=== PATIENT | female | born 1985 | race Caucasian/White ===

== ENCOUNTER 2017-07-15 18:45 | Emergency (ER) | payer SELFPAY ==
[~2017-07-15] VITALS: Ht 160 cm; Wt 56.7 kg
[2017-07-15 19:20] LABS: BILIRUBIN,URINE NEGATIVE (NEG); GLUCOSE,URINE NEGATIVE (NEG); NITRITE,URINE NEGATIVE (NEG); PH,URINE 6.5; PROTEIN,URINE NEGATIVE (NEG-TRACE); UROBILINOGEN,URINE 0.2 mg/dL (0.2 mg/dL)
[2017-07-15 19:26] LABS: BACTERIA,URINE FEW /HPF (0-FEW); RBC,URINE OCC /HPF (0-2); SQUAMOUS EPITHELIAL CELL,UR MOD /LPF; WBC,URINE RARE /HPF (0-4)
[2017-07-15] MEDS ORDERED: IV NORMAL SALINE 1000ML BAG 1,000 ML IV ONE (19:30)
[2017-07-15] MEDS ORDERED: HYDROmorphone 2 MG/ML VIAL IV ONE (19:30)
[2017-07-15] MEDS ORDERED: ONDANSETRON PF 4 MG/2 ML VIAL. IV ONE (19:30)
[2017-07-15] MEDS ORDERED: BUSP10TA PO (20:04)
[2017-07-15] MEDS ORDERED: SERT100T PO (20:04)
[2017-07-15] MEDS ORDERED: GABA800T2 PO (20:05)
[2017-07-15] MEDS ORDERED: fentaNYL PF VIAL 100 MCG/2 ML VIAL IV PRN (20:15)
[2017-07-15 20:25] VITALS: BP 111/58
[2017-07-15] MEDS ORDERED: HYDR-2758 PO (20:31)
--- NOTE | 2017-07-15 20:31 | PHYS DOC ---
Past Medical History Past Medical History: Anxiety, Depression, Kidney Stone Past Surgical History: Hysterectomy Alcohol Use: None Drug Use: None Adult General Chief Complaint Chief Complaint: FLANK PAIN HPI HPI 31-year-old female presenting with right flank pain recently diagnosed with kidney stones at [facility]. She was able to show me the lab results and CT results which show a 2 mm kidney stone on the right UVJ. Otherwise unremarkable. Her pain is sharp shooting moderate intermittent and without alleviating factors. She denies any fevers or chills. She has nausea without vomiting. Review of systems is negative for fevers chills headache chest pain or shortness of breath. All other review of systems is negative unless otherwise noted in history of present illness. ED course: 31-year-old female presenting to the emergency department today with flank pain diagnosed with a kidney stone following up with urology. Patient was given IV fluids along with nausea and pain medication for treatment of her kidney stone. negative. Urinalysis not suggestive of infection. On reexamination she is feeling better. The patient was then discharged home in stable condition to follow up with urology at [facility]. They were to return if their symptoms worsened or if they were concerned for any reason. Face-to- face discharge instructions and return precautions were given. Patient's questions were answered to their satisfaction. Patient is comfortable plan. Review of Systems Review of Systems SEE ABOVE. Current Medications Current Medications Current Medications Medications (Trade) Dose Ordered Sig/[facility] Start Time Stop Time Status Last Admin Dose Admin Fentanyl Citrate (Fentanyl 2ml Vial) 50 mcg PRN Q30MIN PRN 07/15/17 20:15 07/15/17 20:23 50 MCG Hydromorphone HCl (Dilaudid) 0.5 mg 1X ONCE 07/15/17 19:30 07/15/17 19:31 DC 07/15/17 19:40 0.5 MG Ondansetron HCl (Zofran) 4 mg 1X ONCE 07/15/17 19:30 07/15/17 19:31 DC 07/15/17 19:40 4 MG Sodium Chloride 1,000 ml @ 1,000 mls/hr 1X ONCE 07/15/17 19:30 07/15/17 20:29 DC 07/15/17 19:42 1,000 MLS/HR Allergies Allergies Allergies Coded Allergies Type Severity Reaction Last Updated Verified clonidine Allergy Unknown "HIVES" 07/15/17 Yes Physical Exam Physical Exam SEE ABOVE Constitutional: Well developed, well nourished, no acute distress, non-toxic appearance. HENT: Normocephalic, atraumatic, bilateral external ears normal, oropharynx moist, no oral exudates, nose normal. [] Eyes: PERRLA, EOMI, conjunctiva normal, no discharge. Neck: Normal range of motion, no tenderness, supple, no stridor. [] Cardiovascular:Heart rate regular rhythm, no murmur Lungs & Thorax: Bilateral breath sounds clear to auscultation [] Abdomen: Bowel sounds normal, soft, no tenderness, no masses, no pulsatile masses. [] Skin: Warm, dry, no erythema, no rash. [] Back: nontender midline, mild right cva tenderness Extremities: No tenderness, no cyanosis, no clubbing, ROM intact, no edema. [] Neurologic: Alert and oriented X 3, normal motor function, normal sensory function, no focal deficits noted. Psychologic: Affect normal, judgement normal, mood normal. [] Current Patient Data Vital Signs Vital Signs Date Time Temp Pulse Resp B/P (MAP) Pulse Ox O2 Delivery O2 Flow Rate FiO2 07/15/17 19:35 64 119/76 (90) 97 Room Air 07/15/17 19:03 98.0 20 98.0 Lab Values Laboratory Tests Test 07/15/17 19:10 Urine Collection Type Unknown Urine Color Straw Urine Clarity Clear Urine pH 6.5 Urine Specific [place] 1.015 Urine Protein Negative mg/dL (NEG-TRACE) Urine Glucose (UA) Negative mg/dL (NEG) Urine Ketones (Stick) Negative mg/dL (NEG) Urine Blood Negative (NEG) Urine Nitrite Negative (NEG) Urine Bilirubin Negative (NEG) Urine Urobilinogen Dipstick 0.2 mg/dL (0.2 mg/dL) Urine Leukocyte Esterase Negative (NEG) Urine RBC Occ /HPF (0-2) Urine WBC Rare /HPF (0-4) Urine Squamous Epithelial Cells Mod /LPF Urine Bacteria Few /HPF (0-FEW) EKG EKG [] Radiology/Procedures Radiology/Procedures [] Course & Med Decision Making Course & Med Decision Making Pertinent Labs and Imaging studies reviewed. (See chart for details) [] Dragon Disclaimer Dragon Disclaimer This electronic medical record was generated, in whole or in part, using a voice recognition dictation system. Departure Departure Impression: Primary Impression: Nephrolithiasis Disposition: 01 HOME, SELF-CARE Condition: STABLE Referrals: BRETT DELCID MD (PCP) Patient Instructions: Diet for Kidney Stones, Kidney Stones Additional Instructions: Thank you for allowing us to participate in your care today. Followup with your primary care physician in 3 days if your symptoms do not improve. Call your Primary Doctor tomorrow and inform them of your visit today. If you do not have a primary care provider you can ask for a list of our primary care providers. Return to the emergency department you have any new or concerning findings. This should be evaluated by the primary care physician and any necessary consulting services for continued management within a few days after discharge. Return to emergency room if you have any new or concerning symptoms including but not limited to fever, chills, nausea, vomiting, intractable pain, any new rashes, chest pain, shortness of air, uncontrolled bleeding, difficulty breathing, and/or vision loss. You may have been prescribed medication that can change in your level of thinking and ability to operate machinery. These medications include hydrocodone and Ativan. Also, Benadryl has been known to do this as well. Be sure to check with your pharmacist and ask if the medications you've prescribed can affect your level of consciousness. I recommend not operating heavy machinery or driving while on medication such as these. Scripts Hydrocodone Bit/Acetaminophen (HYDROCODONE-APAP 5-325 ) 1 Each Tablet 1 TAB PO PRN Q8HRS Y for SEVERE PAIN, #8 TAB 0 Refills Prov: ISABELA DC MD 07/15/17 ISABELA DC MD Jul 15, 2017 20:31
[2017-07-15] MEDS ORDERED: ONDA4TAB10 SL (21:01)
== END 2017-07-15 21:00 | disposition home or self-care (01) ==
LOC: ER 18:45
DX: N20.0 Calculus of kidney (principal); F41.9 Anxiety disorder, unspecified; F32.9 Major depressive disorder, single episode, unspecified; Z87.442 Personal history of urinary calculi; Z90.710 Acquired absence of both cervix and uterus; Z88.8 Allergy status to other drugs, medicaments and biological substances
CPT/HCPCS: 81001; 96361; 96374; 96375; 99284; J1170; J2405; J3010; J7030

== ENCOUNTER → 2018-03-23 | Outpatient (CLI) | payer OTHER ==
[~2018-03-23] MED LIST: BUSP10TA PO; GABA800T2 PO; HYDR-2758 PO; ONDA4TAB10 SL; SERT100T PO
[2018-03-24 09:51] LABS: BASO # 0.1 x10^3/uL (0.0-0.2); BASO % 1 % (0-3); EOS # 0.1 x10^3/uL (0.0-0.7); EOS % 2 % (0-3); HEMATOCRIT 41.3 % (36.0-47.0); LYMPH % 26 % (24-48); MEAN CORPUSCULAR HEMOGLOBIN 33 pg (25-35); MEAN CORPUSCULAR HGB CONC 34 g/dL (31-37); MEAN CORPUSCULAR VOLUME 96 fL (79-100); MONO # 0.6 x10^3/uL (0.0-1.1); MONO % 8 % (0-9); NEUT # 4.9 x10^3uL (1.8-7.7); NEUT % 64 % (31-73); PLATELET COUNT 221 x10^3/uL (140-400); RED CELL DISTRIBUTION WIDTH 13.4 % (11.5-14.5); WHITE BLOOD COUNT 7.7 x10^3/uL (4.0-11.0)
== END | disposition home or self-care (01) ==
LOC: LAB 19:56
PROVIDERS: ATTEND Psychiatry & Neurology Psychiatry
DX: F33.2 Major depressive disorder, recurrent severe without psychotic features (principal); Z79.899 Other long term (current) drug therapy; Z87.442 Personal history of urinary calculi; Z90.710 Acquired absence of both cervix and uterus; Z88.8 Allergy status to other drugs, medicaments and biological substances
CPT/HCPCS: 36415; 85025

== ENCOUNTER 2019-11-02 05:07 | Inpatient (IN) | payer BC, OTHER ==
[~2019-11-02] VITALS: Ht 160 cm; Wt 54.5 kg
[~2019-11-02 05:07] MED LIST changes: -GABA800T2 PO; +GABA800T5 PO; -HYDR-2758 PO; +HYDR-2761 PO
[2019-11-02] MEDS ORDERED: IV NORMAL SALINE 1000ML BAG 1,000 ML IV SCH (05:42)
[2019-11-02] MEDS ORDERED: MORPHINE SULFATE 4 MG/ML VIAL. ONE (05:43)
[2019-11-02] MEDS ORDERED: ONDANSETRON PF 4 MG/2 ML VIAL. ONE (05:43)
[2019-11-02] MEDS ORDERED: ONDANSETRON PF 4 MG/2 ML VIAL. IVP ONE (05:45)
[2019-11-02] MEDS ORDERED: MORPHINE SULFATE 4 MG/ML VIAL. IV ONE (05:45)
--- NOTE | 2019-11-02 05:52 | PHYS DOC ---
Past Medical History Past Medical History: Anxiety, Depression, Kidney Stone Past Surgical History: Hysterectomy Smoking Status: Current Every Day Smoker Alcohol Use: None Drug Use: None Adult General Chief Complaint Chief Complaint: ABDOMINAL PAIN HPI HPI Patient is a 34 year old female with history of kidney stone, anxiety and depression, methamphetamine abuse who presents with complaining of abdominal pain. Patient states she had 6 episodes of nonbloody diarrhea yesterday and since 3 AM has had constant pain in periumbilical area as a sharp pain and rated her pain 10/10. Patient states she had nausea and 5 or 6 episodes of nonbloody vomiting today without diarrhea. Patient denies fever and chills, urinary symptoms, URI symptoms, history of the same pain. Patient states she had methamphetamine 2 to 3 days ago. Patient states she stopped using marijuana 2 weeks ago. Patient states she drove herself to the hospital. Patient has history of hysterectomy. Review of Systems Review of Systems Constitutional: Denies fever or chills [] Eyes: Denies change in visual acuity, redness, or eye pain [] HENT: Denies nasal congestion or sore throat [] Respiratory: Denies cough or shortness of breath [] Cardiovascular: No additional information not addressed in HPI [] GI: Reports abdominal pain, nausea, vomiting, diarrhea [] : Denies dysuria or hematuria [] Musculoskeletal: Denies back pain or joint pain [] Integument: Denies rash or skin lesions [] Neurologic: Denies headache, focal weakness or sensory changes [] Endocrine: Denies polyuria or polydipsia [] All other systems were reviewed and found to be within normal limits, except as documented in this note. Current Medications Current Medications Current Medications Medications (Trade) Dose Ordered Sig/[facility] Start Time Stop Time Status Last Admin Dose Admin Morphine Sulfate (Morphine Sulfate) 4 mg 1X ONCE 11/02/19 05:45 11/02/19 05:51 DC 11/02/19 05:46 4 MG Ondansetron HCl (Zofran) 4 mg 1X ONCE 11/02/19 05:45 11/02/19 05:51 DC 11/02/19 05:47 4 MG Sodium Chloride 1,000 ml @ 1,000 mls/hr Q1H 11/02/19 05:42 11/02/19 06:41 11/02/19 05:46 1,000 MLS/HR Allergies Allergies Allergies Coded Allergies Type Severity Reaction Last Updated Verified clonidine Allergy Unknown "HIVES" 07/15/17 Yes Physical Exam Physical Exam Constitutional: Well nourished, moderate distress, non-toxic appearance, crying of pain. [] HENT: Normocephalic, atraumatic, bilateral external ears normal, oropharynx moist, no oral exudates, nose normal. [] Eyes: PERRLA, EOMI, conjunctiva normal, no discharge. [] Neck: Normal range of motion, no tenderness, supple, no stridor. [] Cardiovascular:Heart rate regular rhythm, no murmur [] Lungs & Thorax: Bilateral breath sounds clear to auscultation [] Abdomen: Bowel sounds normal, soft, generalized guarding, no masses, no pulsatile masses. [] Skin: Warm, dry, no erythema, no rash. [] Back: No tenderness, no CVA tenderness. [] Extremities: No tenderness, no cyanosis, no clubbing, ROM intact, no edema. [] Neurologic: Alert and oriented X 3, normal motor function, normal sensory function, no focal deficits noted. [] Psychologic: Affect anxious, mood normal. [] EKG EKG [] Radiology/Procedures Radiology/Procedures [] Course & Med Decision Making Course & Med Decision Making Pertinent Labs and Imaging studies are pending. Evaluation of patient inertial 34-year-old female patient with history of methamphetamine abuse presented to ER with complaining of nausea and vomiting and diarrhea and abdominal pain. Patient was very anxious and crying of pain even she drove herself to the emergency room. IV fluids, Zofran, morphine was ordered. Labs and CT abdomen and pelvis is pending. Sign out given to at 0600 for further evaluation and final disposition. Discussed current findings and plan with patient and family, who acknowledge understanding and agreement. Dragon Disclaimer Dragon Disclaimer This electronic medical record was generated, in whole or in part, using a voice recognition dictation system. Departure Departure Impression: Primary Impression: Acute gastroenteritis Additional Impressions: Abdominal pain History of methamphetamine abuse Referrals: BRETT DELCID MD (PCP) Problem Qualifiers Additional Impressions: Abdominal pain Abdominal location: unspecified location Qualified Codes: R10.9 - Unspecified abdominal pain BELEM RINCON MD Nov 02, 2019 05:52
[2019-11-02 06:13] LABS: BASO # 0.1 x10^3/uL (0.0-0.2); BASO % 1 % (0-3); EOS # 0.2 x10^3/uL (0.0-0.7); EOS % 3 % (0-3); HEMATOCRIT 44.7 % (36.0-47.0); LYMPH % 26 % (24-48); MEAN CORPUSCULAR HEMOGLOBIN 31 pg (25-35); MEAN CORPUSCULAR HGB CONC 34 g/dL (31-37); MEAN CORPUSCULAR VOLUME 92 fL (79-100); MONO # 0.7 x10^3/uL (0.0-1.1); MONO % 9 % (0-9); NEUT # 4.7 x10^3/uL (1.8-7.7); NEUT % 61 % (31-73); PLATELET COUNT 263 x10^3/uL (140-400); RED BLOOD COUNT 4.85 x10^6/uL (3.50-5.40); RED CELL DISTRIBUTION WIDTH 13.2 % (11.5-14.5); WHITE BLOOD COUNT 7.8 x10^3/uL (4.0-11.0)
[2019-11-02 06:26] LABS: BILIRUBIN,URINE NEGATIVE (NEG); CLARITY,URINE CLEAR; COLOR,URINE YELLOW; NITRITE,URINE NEGATIVE (NEG); PH,URINE 5.5 (<5.0-8.0); PROTEIN,URINE NEGATIVE (NEG-TRACE); UROBILINOGEN,URINE 0.2 mg/dL (0.2 mg/dL)
[2019-11-02 06:27] LABS: BARBITURATES NEG (NEG); BENZODIAZEPINES NEG (NEG); CANNABINOIDS NEG (NEG); COCAINE NEG (NEG); METHADONE NEG (NEG); OPIATES NEG (NEG); PHENCYCLIDINE NEG (NEG)
[2019-11-02 06:30] LABS: AMPHETAMINE/METHAMPHETAMINE POS (NEG)
[2019-11-02] MEDS ORDERED: CONTRAST GIVEN. MC PRN (06:30)
[2019-11-02] MEDS ORDERED: IOHEXOL 300 MG/ML 100ML VIAL. IV ONE (06:30)
[2019-11-02 06:56] LABS: BACTERIA,URINE FEW /HPF (0-FEW); RBC,URINE 0 /HPF (0-2); SQUAMOUS EPITHELIAL CELL,UR MANY /LPF; WBC,URINE OCC /HPF (0-4)
[2019-11-02 06:59] LABS: CREATININE 0.9 mg/dL (0.6-1.0); GFR 72.1
[2019-11-02 07:09] LABS: ALBUMIN 3.1 g/dL (3.4-5.0); TOTAL BILIRUBIN 0.1 mg/dL (0.2-1.0); TOTAL PROTEIN 6.3 g/dL (6.4-8.2)
--- NOTE | 2019-11-02 08:05 | RAD ---
PQRS Compliance Statement: One or more of the following individualized dose reduction techniques were utilized for this examination: 1. Automated exposure control 2. Adjustment of the mA and/or kV according to patient size 3. Use of iterative reconstruction technique CT ABD PELV W/ IV CONTRST ONLY Clinical Indication: Abdominal pain, nausea, vomiting, diarrhea. Comparison: None. Technique: Helical CT imaging of the abdomen and pelvis is performed after 75 cc of Omnipaque 300 IV contrast. Oral contrast not administered. Findings: There is mild bilateral dependent atelectasis. Cardiac size normal. There is hyperenhancement of the gallbladder wall without thickening. There is mild pericholecystic fluid. There is calcification near the fundus that could be a calculus versus a focal wall calcification. The liver, spleen, pancreas, adrenal glands, and abdominal aorta are normal. Kidneys enhance symmetrically, no hydronephrosis. Stomach unremarkable. There is fluid-filled dilated small bowel in the central abdomen measuring up to 2.8 cm. A point of transition is not identified. No colon wall thickening is identified. Stool distends the cecum. Appendix not seen, no secondary signs of appendicitis. The urinary bladder is normal. Hysterectomy. There is a small rim-enhancing left ovarian follicle. There is trace pelvic free fluid. No acute bone abnormality. IMPRESSION: 1. Cannot exclude cholecystitis. There is hyperenhancement of the gallbladder wall without thickening. There is pericholecystic fluid. There is tiny gallstone versus focal wall calcification. 2. There is dilated small bowel in the central abdomen. Point of transition is not identified. Partial small bowel obstruction or reactive changes or enteritis are considerations. 3. Trace pelvic free fluid. Electronically signed by: Karson Escalona MD (11/02/2019 8:01 AM) [id number]
[2019-11-02] MEDS ORDERED: MORPHINE SULFATE 2 MG/ML VIAL. IV PRN (08:30)
[2019-11-02] MEDS ORDERED: ONDANSETRON PF 4 MG/2 ML VIAL. IV PRN ×2 (08:30→16:45)
--- NOTE | 2019-11-02 09:04 | RAD ---
Right upper quadrant abdominal ultrasound History: Right upper quadrant pain. Comparison: CT abdomen and pelvis with contrast, earlier same day. Technique: Transabdominal ultrasound images are obtained. Findings: The pancreas is obscured due to overlying bowel gas. Liver is normal in echogenicity. Right hepatic lobe measures 14.9 cm. Portal flow is hepatopedal. There is cholelithiasis. There is pericholecystic fluid. Gallbladder wall thickness is upper limits of normal. Sonographic Gonzalez sign is reported as negative. Common bile duct caliber is normal measuring 3 mm in diameter. The right kidney measures 10 cm in length. Cortical echotexture is normal. There is no hydronephrosis. IVC is unremarkable. IMPRESSION: There is cholelithiasis, borderline gallbladder wall thickening, and pericholecystic fluid. Sonographic Gonzalez sign is negative. Findings suggest cholecystitis. Consider confirmation with hepatobiliary scan. Electronically signed by: Karson Escalona MD (11/02/2019 9:01 AM) [id number]
--- NOTE | 2019-11-02 09:42 | PDOC2 ---
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 Pain was worse today. No blood in stool. States must leave tomorrow Noted drug screen + for meth Past Medical History Psych: Anxiety Past Surgical History Past Surgical History: Hysterectomy Family History Family History: Other (noncontributory to current illness ) Social History <1 pack per day ALCOHOL: rare Drugs: Crystal meth Current Problem List Problem List Problems Medical Problems: (1) Abdominal pain Status: Acute (2) Acute gastroenteritis Status: Acute (3) History of methamphetamine abuse Status: Acute Current Medications Current Medications Current Medications Ondansetron HCl (Zofran) 4 mg STK-MED ONCE .ROUTE ; Start 11/02/19 at 05:43; Stop 11/02/19 at 05:44; Status DC Morphine Sulfate (Morphine Sulfate) 4 mg STK-MED ONCE .ROUTE ; Start 11/02/19 at 05:43; Stop 11/02/19 at 05:44; Status DC Sodium Chloride 1,000 ml @ 1,000 mls/hr Q1H IV Last administered on 11/02/19at 05:46; Start 11/02/19 at 05:42; Stop 11/02/19 at 06:41; Status DC Ondansetron HCl (Zofran) 4 mg 1X ONCE IVP Last administered on 11/02/19at 05:47; Start 11/02/19 at 05:45; Stop 11/02/19 at 05:51; Status DC Morphine Sulfate (Morphine Sulfate) 4 mg 1X ONCE IV Last administered on 11/02/19at 05:46; Start 11/02/19 at 05:45; Stop 11/02/19 at 05:51; Status DC Iohexol (Omnipaque 300 Mg/ml) 100 ml 1X ONCE IV Last administered on 11/02/19at 07:30; Start 11/02/19 at 06:30; Stop 11/02/19 at 06:31; Status DC Info (CONTRAST GIVEN -- Rx MONITORING) 1 each PRN DAILY PRN MC SEE COMMENTS; Start 11/02/19 at 06:30; Stop 11/04/19 at 06:29 Ondansetron HCl (Zofran) 4 mg PRN Q8HRS PRN IV NAUSEA/VOMITING; Start 11/02/19 at 08:30; Stop 11/03/19 at 08:29 Morphine Sulfate (Morphine Sulfate) 2 mg PRN Q2HR PRN IV PAIN; Start 11/02/19 at 08:30; Stop 11/03/19 at 08:29 Sodium Chloride 1,000 ml @ 125 mls/hr Q8H IV ; Start 11/02/19 at 08:22; Stop 11/03/19 at 08:21 Active Scripts Active Zofran Odt (Ondansetron) 4 Mg Tab.rapdis 1 Tab SL PRN Q8HRS PRN Hydrocodone-Apap 5-325 (Hydrocodone Bit/Acetaminophen) 1 Each Tablet 1 Tab PO PRN Q8HRS PRN Reported Gabapentin 800 Mg Tablet 1,200 Mg PO TID Zoloft (Sertraline Hcl) 100 Mg Tablet 1 Tab PO DAILY Buspirone Hcl 10 Mg Tablet 1 Tab PO BID Allergies Allergies: Coded Allergies: clonidine (Verified Allergy, Unknown, "HIVES" , 07/15/17) ROS General: No: Chills, Other (fevers ) PSYCHOLOGICAL ROS: YES: Anxiety; No: Depression Eyes: No Blurry vision, No Double vision HEENT: No: Heacaches, Sore Throat Hematological and Lymphatic: No: Bleeding Problems, Blood Clots Respiratory: YES: Shortness of breath; No: Cough Cardiovascular: No Chest Pain, No Palpitations Gastrointestinal: Yes Other (see hpi) Genitourinary: No Dysuria, No Hematuria Musculoskeletal: No Joint Pain, No Muscle Pain Neurological: No Impaired Coord/balance, No Numbness/Tingling Skin: No Pruritus, No Rash Physical Exam General: Other (tearful, crying ) HEENT: Atraumatic, PERRLA Lungs: Clear to auscultation, Normal air movement Heart: Regular rate, Normal S1, Normal S2 Abdomen: Soft, Other (diffusely TTP, ND ) Extremities: No clubbing, No cyanosis Skin: No rashes, No breakdown Neuro: Normal gait, Normal speech Psych/Mental Status: Mental status NL, Mood NL MUSCULOSKELETAL: No deformity, No swelling Vitals VITALS Vital Signs Date Time Temp Pulse Resp B/P (MAP) Pulse Ox O2 Delivery O2 Flow Rate FiO2 11/02/19 07:35 91 18 126/72 (90) 100 Room Air 11/02/19 05:20 98.4 98.4 Labs Labs Laboratory Tests Test 11/02/19 05:40 11/02/19 06:36 White Blood Count 7.8 x10^3/uL (4.0-11.0) Red Blood Count 4.85 x10^6/uL (3.50-5.40) Hemoglobin 15.0 g/dL (12.0-15.5) Hematocrit 44.7 % (36.0-47.0) Mean Corpuscular Volume 92 fL (79-100) Mean Corpuscular Hemoglobin 31 pg (25-35) Mean Corpuscular Hemoglobin Concent 34 g/dL (31-37) Red Cell Distribution Width 13.2 % (11.5-14.5) Platelet Count 263 x10^3/uL (140-400) Neutrophils (%) (Auto) 61 % (31-73) Lymphocytes (%) (Auto) 26 % (24-48) Monocytes (%) (Auto) 9 % (0-9) Eosinophils (%) (Auto) 3 % (0-3) Basophils (%) (Auto) 1 % (0-3) Neutrophils # (Auto) 4.7 x10^3/uL (1.8-7.7) Lymphocytes # (Auto) 2.0 x10^3/uL (1.0-4.8) Monocytes # (Auto) 0.7 x10^3/uL (0.0-1.1) Eosinophils # (Auto) 0.2 x10^3/uL (0.0-0.7) Basophils # (Auto) 0.1 x10^3/uL (0.0-0.2) Urine Collection Type Unknown Urine Color Yellow Urine Clarity Clear Urine pH 5.5 (<5.0-8.0) Urine Specific [place] 1.025 (1.000-1.030) Urine Protein Negative mg/dL (NEG-TRACE) Urine Glucose (UA) Negative mg/dL (NEG) Urine Ketones (Stick) Negative mg/dL (NEG) Urine Blood Negative (NEG) Urine Nitrite Negative (NEG) Urine Bilirubin Negative (NEG) Urine Urobilinogen Dipstick 0.2 mg/dL (0.2 mg/dL) Urine Leukocyte Esterase Negative (NEG) Urine RBC 0 /HPF (0-2) Urine WBC Occ /HPF (0-4) Urine Squamous Epithelial Cells Many /LPF Urine Bacteria Few /HPF (0-FEW) Urine Mucus Marked /LPF Urine Opiates Screen Neg (NEG) Urine Methadone Screen Neg (NEG) Urine Barbiturates Neg (NEG) Urine Phencyclidine Screen Neg (NEG) Urine Amphetamine/Methamphetamine Pos (NEG) Urine Benzodiazepines Screen Neg (NEG) Urine Cocaine Screen Neg (NEG) Urine Cannabinoids Screen Neg (NEG) Urine Ethyl Alcohol Neg (NEG) Sodium Level 139 mmol/L (136-145) Potassium Level 4.0 mmol/L (3.5-5.1) Chloride Level 107 mmol/L (98-107) Carbon Dioxide Level 24 mmol/L (21-32) Anion Gap 8 (6-14) Blood Urea Nitrogen 12 mg/dL (7-20) Creatinine 0.9 mg/dL (0.6-1.0) Estimated GFR (Cockcroft-Gault) 72.1 BUN/Creatinine Ratio 13 (6-20) Glucose Level 99 mg/dL (70-99) Calcium Level 8.0 mg/dL (8.5-10.1) Total Bilirubin 0.1 mg/dL (0.2-1.0) Aspartate Amino Transf (AST/SGOT) 14 U/L (15-37) Alanine Aminotransferase (ALT/SGPT) 16 U/L (14-59) Alkaline Phosphatase 53 U/L (46-116) Total Protein 6.3 g/dL (6.4-8.2) Albumin 3.1 g/dL (3.4-5.0) Albumin/Globulin Ratio 1.0 (1.0-1.7) Lipase 247 U/L (73-393) Ethyl Alcohol Level < 10 mg/dL (0-10) Laboratory Tests Test 11/02/19 05:40 11/02/19 06:36 White Blood Count 7.8 x10^3/uL (4.0-11.0) Red Blood Count 4.85 x10^6/uL (3.50-5.40) Hemoglobin 15.0 g/dL (12.0-15.5) Hematocrit 44.7 % (36.0-47.0) Mean Corpuscular Volume 92 fL (79-100) Mean Corpuscular Hemoglobin 31 pg (25-35) Mean Corpuscular Hemoglobin Concent 34 g/dL (31-37) Red Cell Distribution Width 13.2 % (11.5-14.5) Platelet Count 263 x10^3/uL (140-400) Neutrophils (%) (Auto) 61 % (31-73) Lymphocytes (%) (Auto) 26 % (24-48) Monocytes (%) (Auto) 9 % (0-9) Eosinophils (%) (Auto) 3 % (0-3) Basophils (%) (Auto) 1 % (0-3) Neutrophils # (Auto) 4.7 x10^3/uL (1.8-7.7) Lymphocytes # (Auto) 2.0 x10^3/uL (1.0-4.8) Monocytes # (Auto) 0.7 x10^3/uL (0.0-1.1) Eosinophils # (Auto) 0.2 x10^3/uL (0.0-0.7) Basophils # (Auto) 0.1 x10^3/uL (0.0-0.2) Urine Collection Type Unknown Urine Color Yellow Urine Clarity Clear Urine pH 5.5 (<5.0-8.0) Urine Specific [place] 1.025 (1.000-1.030) Urine Protein Negative mg/dL (NEG-TRACE) Urine Glucose (UA) Negative mg/dL (NEG) Urine Ketones (Stick) Negative mg/dL (NEG) Urine Blood Negative (NEG) Urine Nitrite Negative (NEG) Urine Bilirubin Negative (NEG) Urine Urobilinogen Dipstick 0.2 mg/dL (0.2 mg/dL) Urine Leukocyte Esterase Negative (NEG) Urine RBC 0 /HPF (0-2) Urine WBC Occ /HPF (0-4) Urine Squamous Epithelial Cells Many /LPF Urine Bacteria Few /HPF (0-FEW) Urine Mucus Marked /LPF Urine Opiates Screen Neg (NEG) Urine Methadone Screen Neg (NEG) Urine Barbiturates Neg (NEG) Urine Phencyclidine Screen Neg (NEG) Urine Amphetamine/Methamphetamine Pos (NEG) Urine Benzodiazepines Screen Neg (NEG) Urine Cocaine Screen Neg (NEG) Urine Cannabinoids Screen Neg (NEG) Urine Ethyl Alcohol Neg (NEG) Sodium Level 139 mmol/L (136-145) Potassium Level 4.0 mmol/L (3.5-5.1) Chloride Level 107 mmol/L (98-107) Carbon Dioxide Level 24 mmol/L (21-32) Anion Gap 8 (6-14) Blood Urea Nitrogen 12 mg/dL (7-20) Creatinine 0.9 mg/dL (0.6-1.0) Estimated GFR (Cockcroft-Gault) 72.1 BUN/Creatinine Ratio 13 (6-20) Glucose Level 99 mg/dL (70-99) Calcium Level 8.0 mg/dL (8.5-10.1) Total Bilirubin 0.1 mg/dL (0.2-1.0) Aspartate Amino Transf (AST/SGOT) 14 U/L (15-37) Alanine Aminotransferase (ALT/SGPT) 16 U/L (14-59) Alkaline Phosphatase 53 U/L (46-116) Total Protein 6.3 g/dL (6.4-8.2) Albumin 3.1 g/dL (3.4-5.0) Albumin/Globulin Ratio 1.0 (1.0-1.7) Lipase 247 U/L (73-393) Ethyl Alcohol Level < 10 mg/dL (0-10) Assessment/Plan Assessment/Plan cholelithiasis, imaging with possible cholecystitis diarrhea, CT suggests possible enteritis WBC normal, LFTS normal + meth will check HIDA to confirm if cholecystitis, pt very apprehensive about any surgery NPO EVANGELISTA COLORADO MD 11/02/19 1530: CONSULT Assessment/Plan Assessment/Plan Pt seen and examined. Agree with Rakesh Guillory's note Pt with c/o periumbilical pain, improved abd soft, NTTP at RUQ, some at umbilicus will try clears, HIDA planned for AM suspect may be enteritis more then cholecystitis. Thanks for consult! 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
[2019-11-02 11:00] VITALS: BP 101/75
[2019-11-02] MEDS: IV NORMAL SALINE 1000ML BAG 1,000 ML IV SCH ×2 (11:04→19:45)
[2019-11-02 15:00] VITALS: BP 105/69
--- NOTE | 2019-11-02 16:14 | PDOC1 ---
History and Physical Date of Admission Date of Admission 11/02/2019 Identification/Chief Complaint Chief Complaint Ivette ruiz Source Source: Chart review, Patient History of Present Illness History of Present Illness Patient is a 34-year-old female with past medical history of nephrolithiasis history of methamphetamine abuse who has relapsed recently after being clean for several years. Unfortunately patient also suffers from anxiety and depression comes today with a history of 8 hours prior to her visit to the emergency department of abdominal discomfort in the periumbilical area. The patient denies radiation to the groin she denies costovertebral angle tenderness no dysuria the patient denies hematuria, and she describes the pain being different from previous episodes of nephrolithiasis. She describes the pain as a sharp sensation 10 out of 10 intensity with no aggravating or alleviating factors the patient has also presented emesis on 5-6 occasions with no blood present. Mostly GI content but her oral intake has been quite poor so more clear liquid other than bile looking material. The patient denies any fever chills she does not refer sick contacts no dietary transgressions no recent changes to her diet either. She denies fat intake, last time she utilized methamphetamine was on she has also in marijuana which she has not smoked in 2 weeks. Th patient at the time of my evaluation is in mild to moderate distress but certainly feels better compared to admission. Surgical consultation has been done and the recommendations are greatly appreciated. Plan of care has been explained in detail to the patient and she acknowledged understanding of the proposed plan of care. She is scheduled for a HIDA scan in the a.m. and will continue to give symptomatic relief of her symptoms and supportive measures throughout her hospital stay. No other concerns were voiced at the time of my visit Past Medical History Psych: Anxiety Past Surgical History Past Surgical History: Hysterectomy Family History Family History: Other (noncontributory to current illness ) Social History Smoke: <1 pack per day ALCOHOL: rare Drugs: Crystal meth Current Problem List Problem List Problems Medical Problems: (1) Abdominal pain Status: Acute (2) Acute gastroenteritis Status: Acute (3) History of methamphetamine abuse Status: Acute Current Medications Current Medications Current Medications Medications (Trade) Dose Ordered Sig/Phill Start Time Stop Time Status Last Admin Dose Admin Info (CONTRAST GIVEN -- Rx MONITORING) 1 each PRN DAILY PRN 11/02/19 06:30 11/04/19 06:29 Iohexol (Omnipaque 300 Mg/ml) 100 ml 1X ONCE 11/02/19 06:30 11/02/19 06:31 DC 11/02/19 07:30 100 ML Morphine Sulfate (Morphine Sulfate) 2 mg PRN Q2HR PRN 11/02/19 08:30 11/03/19 08:29 Ondansetron HCl (Zofran) 4 mg PRN Q8HRS PRN 11/02/19 08:30 11/03/19 08:29 Sodium Chloride 1,000 ml @ 125 mls/hr Q8H 11/02/19 08:22 11/03/19 08:21 11/02/19 11:04 125 MLS/HR Allergies Allergies Allergies Coded Allergies Type Severity Reaction Last Updated Verified clonidine Allergy Unknown "HIVES" 07/15/17 Yes ROS Review of System CONSTITUTIONAL: No fever or chills EYES: No recent changes SKIN: No rash or itching CARDIOVASCULAR: No chest pain, syncope, palpitations, or edema RESPIRATORY: No SOB or cough GASTROINTESTINAL: No nausea, vomiting or abdominal pain NEUROLOGICAL: No headaches or weakness ENDOCRINE: No cold or heat intolerance GENITOURINARY: No urgency or frequency of urination MUSCULOSKELETAL: No back pain or joint pain LYMPHATICS: No enlarged lymph nodes PSYCHIATRIC: No anxiety or depression Physical Exam Physical Exam GEN.: No apparent distress. Alert and oriented. HEENT: Head is normocephalic, atraumatic NECK: Supple. LUNGS: Clear to auscultation. HEART: RRR, S1, S2 present. Peripheral pulses intact ABDOMEN: Soft, nontender. Positive bowel sounds. EXTREMITIES: Without any cyanosis. NEUROLOGIC: Normal speech, normal tone PSYCHIATRIC: Normal affect, normal mood. SKIN: No ulcerations Vitals Vitals Vital Signs Date Time Temp Pulse Resp B/P (MAP) Pulse Ox O2 Delivery O2 Flow Rate FiO2 11/02/19 15:00 98.2 81 16 105/69 (81) 98 Room Air 98.2 Labs Labs Laboratory Tests Test 11/02/19 05:40 11/02/19 06:36 White Blood Count 7.8 x10^3/uL (4.0-11.0) Red Blood Count 4.85 x10^6/uL (3.50-5.40) Hemoglobin 15.0 g/dL (12.0-15.5) Hematocrit 44.7 % (36.0-47.0) Mean Corpuscular Volume 92 fL (79-100) Mean Corpuscular Hemoglobin 31 pg (25-35) Mean Corpuscular Hemoglobin Concent 34 g/dL (31-37) Red Cell Distribution Width 13.2 % (11.5-14.5) Platelet Count 263 x10^3/uL (140-400) Neutrophils (%) (Auto) 61 % (31-73) Lymphocytes (%) (Auto) 26 % (24-48) Monocytes (%) (Auto) 9 % (0-9) Eosinophils (%) (Auto) 3 % (0-3) Basophils (%) (Auto) 1 % (0-3) Neutrophils # (Auto) 4.7 x10^3/uL (1.8-7.7) Lymphocytes # (Auto) 2.0 x10^3/uL (1.0-4.8) Monocytes # (Auto) 0.7 x10^3/uL (0.0-1.1) Eosinophils # (Auto) 0.2 x10^3/uL (0.0-0.7) Basophils # (Auto) 0.1 x10^3/uL (0.0-0.2) Urine Collection Type Unknown Urine Color Yellow Urine Clarity Clear Urine pH 5.5 (<5.0-8.0) Urine Specific [place] 1.025 (1.000-1.030) Urine Protein Negative mg/dL (NEG-TRACE) Urine Glucose (UA) Negative mg/dL (NEG) Urine Ketones (Stick) Negative mg/dL (NEG) Urine Blood Negative (NEG) Urine Nitrite Negative (NEG) Urine Bilirubin Negative (NEG) Urine Urobilinogen Dipstick 0.2 mg/dL (0.2 mg/dL) Urine Leukocyte Esterase Negative (NEG) Urine RBC 0 /HPF (0-2) Urine WBC Occ /HPF (0-4) Urine Squamous Epithelial Cells Many /LPF Urine Bacteria Few /HPF (0-FEW) Urine Mucus Marked /LPF Urine Opiates Screen Neg (NEG) Urine Methadone Screen Neg (NEG) Urine Barbiturates Neg (NEG) Urine Phencyclidine Screen Neg (NEG) Urine Amphetamine/Methamphetamine Pos (NEG) Urine Benzodiazepines Screen Neg (NEG) Urine Cocaine Screen Neg (NEG) Urine Cannabinoids Screen Neg (NEG) Urine Ethyl Alcohol Neg (NEG) Sodium Level 139 mmol/L (136-145) Potassium Level 4.0 mmol/L (3.5-5.1) Chloride Level 107 mmol/L (98-107) Carbon Dioxide Level 24 mmol/L (21-32) Anion Gap 8 (6-14) Blood Urea Nitrogen 12 mg/dL (7-20) Creatinine 0.9 mg/dL (0.6-1.0) Estimated GFR (Cockcroft-Gault) 72.1 BUN/Creatinine Ratio 13 (6-20) Glucose Level 99 mg/dL (70-99) Calcium Level 8.0 mg/dL (8.5-10.1) Total Bilirubin 0.1 mg/dL (0.2-1.0) Aspartate Amino Transf (AST/SGOT) 14 U/L (15-37) Alanine Aminotransferase (ALT/SGPT) 16 U/L (14-59) Alkaline Phosphatase 53 U/L (46-116) Total Protein 6.3 g/dL (6.4-8.2) Albumin 3.1 g/dL (3.4-5.0) Albumin/Globulin Ratio 1.0 (1.0-1.7) Lipase 247 U/L (73-393) Ethyl Alcohol Level < 10 mg/dL (0-10) Laboratory Tests Test 11/02/19 05:40 11/02/19 06:36 White Blood Count 7.8 x10^3/uL (4.0-11.0) Red Blood Count 4.85 x10^6/uL (3.50-5.40) Hemoglobin 15.0 g/dL (12.0-15.5) Hematocrit 44.7 % (36.0-47.0) Mean Corpuscular Volume 92 fL (79-100) Mean Corpuscular Hemoglobin 31 pg (25-35) Mean Corpuscular Hemoglobin Concent 34 g/dL (31-37) Red Cell Distribution Width 13.2 % (11.5-14.5) Platelet Count 263 x10^3/uL (140-400) Neutrophils (%) (Auto) 61 % (31-73) Lymphocytes (%) (Auto) 26 % (24-48) Monocytes (%) (Auto) 9 % (0-9) Eosinophils (%) (Auto) 3 % (0-3) Basophils (%) (Auto) 1 % (0-3) Neutrophils # (Auto) 4.7 x10^3/uL (1.8-7.7) Lymphocytes # (Auto) 2.0 x10^3/uL (1.0-4.8) Monocytes # (Auto) 0.7 x10^3/uL (0.0-1.1) Eosinophils # (Auto) 0.2 x10^3/uL (0.0-0.7) Basophils # (Auto) 0.1 x10^3/uL (0.0-0.2) Urine Collection Type Unknown Urine Color Yellow Urine Clarity Clear Urine pH 5.5 (<5.0-8.0) Urine Specific [place] 1.025 (1.000-1.030) Urine Protein Negative mg/dL (NEG-TRACE) Urine Glucose (UA) Negative mg/dL (NEG) Urine Ketones (Stick) Negative mg/dL (NEG) Urine Blood Negative (NEG) Urine Nitrite Negative (NEG) Urine Bilirubin Negative (NEG) Urine Urobilinogen Dipstick 0.2 mg/dL (0.2 mg/dL) Urine Leukocyte Esterase Negative (NEG) Urine RBC 0 /HPF (0-2) Urine WBC Occ /HPF (0-4) Urine Squamous Epithelial Cells Many /LPF Urine Bacteria Few /HPF (0-FEW) Urine Mucus Marked /LPF Urine Opiates Screen Neg (NEG) Urine Methadone Screen Neg (NEG) Urine Barbiturates Neg (NEG) Urine Phencyclidine Screen Neg (NEG) Urine Amphetamine/Methamphetamine Pos (NEG) Urine Benzodiazepines Screen Neg (NEG) Urine Cocaine Screen Neg (NEG) Urine Cannabinoids Screen Neg (NEG) Urine Ethyl Alcohol Neg (NEG) Sodium Level 139 mmol/L (136-145) Potassium Level 4.0 mmol/L (3.5-5.1) Chloride Level 107 mmol/L (98-107) Carbon Dioxide Level 24 mmol/L (21-32) Anion Gap 8 (6-14) Blood Urea Nitrogen 12 mg/dL (7-20) Creatinine 0.9 mg/dL (0.6-1.0) Estimated GFR (Cockcroft-Gault) 72.1 BUN/Creatinine Ratio 13 (6-20) Glucose Level 99 mg/dL (70-99) Calcium Level 8.0 mg/dL (8.5-10.1) Total Bilirubin 0.1 mg/dL (0.2-1.0) Aspartate Amino Transf (AST/SGOT) 14 U/L (15-37) Alanine Aminotransferase (ALT/SGPT) 16 U/L (14-59) Alkaline Phosphatase 53 U/L (46-116) Total Protein 6.3 g/dL (6.4-8.2) Albumin 3.1 g/dL (3.4-5.0) Albumin/Globulin Ratio 1.0 (1.0-1.7) Lipase 247 U/L (73-393) Ethyl Alcohol Level < 10 mg/dL (0-10) VTE Prophylaxis Ordered VTE Prophylaxis Devices: Yes VTE Pharmacological Prophylaxi: No Assessment/Plan Assessment/Plan Abdominal pain differential includes acute cholecystitis versus enteritis. performance consultant less concerned about biliary etiology for her symptoms nevertheless HIDA scan has been ordered for the a.m. History of polysubstance abuse with last use of methamphetamine 2 days prior to her admission History of anxiety History of depression Denies suicidal or homicidal ideations at the present time. Plan: Patient will continue with IV fluid resuscitation We will start liquid diet as per gift consultant HIDA scan in the a.m. Pain management Symptomatic relief of symptoms Further recommendations based on the clinical course If HIDA scan is negative and no further intervention deemed necessary most likely patient can be released in the a.m. DVT prophylaxis with MARY Farfan MD Nov 02, 2019 16:14
[2019-11-02] MEDS ORDERED: guaiFENesin ORAL 200 MG/10 ML LIQUID. PO PRN (16:45)
[2019-11-02] MEDS ORDERED: DOCUSATE SODIUM 100 MG CAPSULE. PO PRN (16:45)
[2019-11-02] MEDS ORDERED: cloNIDine HCL 0.1 MG TABLET PO PRN (16:45)
[2019-11-02] MEDS ORDERED: ALBUTEROL SULFATE 2.5 MG/3 ML NEBU. NEB PRN (16:45)
[2019-11-02] MEDS ORDERED: ZOLPIDEM 5 MG TABLET. PO PRN (16:45)
[2019-11-02] MEDS ORDERED: ACETAMINOPHEN 325 MG TABLET. PO PRN (16:45)
[2019-11-02] MEDS ORDERED: diphenhydrAMINE 50 MG/ML VIAL IVP PRN (16:45)
[2019-11-02 19:00] VITALS: BP 105/65
[2019-11-02] MEDS ORDERED: KETOROLAC 15 MG/ML VIAL. IVP PRN (22:30)
[2019-11-02] MEDS: KETOROLAC 30 MG/ML VIAL. IVP ONE (22:45)
[2019-11-02 23:00] VITALS: BP 104/62
[2019-11-03] MEDS: IV NORMAL SALINE 1000ML BAG 1,000 ML IV SCH (00:22)
[2019-11-03] MEDS: KETOROLAC 30 MG/ML VIAL. IVP ONE (02:46)
[2019-11-03 03:00] VITALS: BP 101/50
[2019-11-03 07:00] VITALS: BP 94/59
[2019-11-03 11:00] VITALS: BP 113/75
--- NOTE | 2019-11-03 11:30 | RAD ---
Hepatobiliary scan. HISTORY: Right upper quadrant pain, evaluate for cholecystitis Hepatobiliary scan was done using 5.5 mCi technetium 99m Choletec. Initial image of the liver is unremarkable. Gallbladder is noted by 10 minutes. Imaging was obtained for 60 minutes. An ejection fraction was not determined. IMPRESSION: 1. Normal visualization of the gallbladder. Electronically signed by: Jeremy Loyd MD (11/03/2019 11:27 AM) [id number]
--- NOTE | 2019-11-03 11:36 | PDOC ---
TOMMIE GUILLORY INFORMATION MANAGEMENT MANAGER 11/03/19 1136: SURGICAL PROGRESS NOTE Subjective mad about not eating wants to go home Vital Signs Vital Signs Date Time Temp Pulse Resp B/P (MAP) Pulse Ox O2 Delivery O2 Flow Rate FiO2 11/03/19 11:00 98.2 104 18 113/75 (88) 97 Room Air 98.2 I&O Intake and Output 11/03/19 07:00 Intake Total 120 ml Balance 120 ml Intake Oral 120 ml # Voids 1 General: Other (upset about no food ) Abdomen: Soft Labs Laboratory Tests Test 11/02/19 05:40 11/02/19 06:36 White Blood Count 7.8 x10^3/uL (4.0-11.0) Red Blood Count 4.85 x10^6/uL (3.50-5.40) Hemoglobin 15.0 g/dL (12.0-15.5) Hematocrit 44.7 % (36.0-47.0) Mean Corpuscular Volume 92 fL (79-100) Mean Corpuscular Hemoglobin 31 pg (25-35) Mean Corpuscular Hemoglobin Concent 34 g/dL (31-37) Red Cell Distribution Width 13.2 % (11.5-14.5) Platelet Count 263 x10^3/uL (140-400) Neutrophils (%) (Auto) 61 % (31-73) Lymphocytes (%) (Auto) 26 % (24-48) Monocytes (%) (Auto) 9 % (0-9) Eosinophils (%) (Auto) 3 % (0-3) Basophils (%) (Auto) 1 % (0-3) Neutrophils # (Auto) 4.7 x10^3/uL (1.8-7.7) Lymphocytes # (Auto) 2.0 x10^3/uL (1.0-4.8) Monocytes # (Auto) 0.7 x10^3/uL (0.0-1.1) Eosinophils # (Auto) 0.2 x10^3/uL (0.0-0.7) Basophils # (Auto) 0.1 x10^3/uL (0.0-0.2) Urine Collection Type Unknown Urine Color Yellow Urine Clarity Clear Urine pH 5.5 (<5.0-8.0) Urine Specific [place] 1.025 (1.000-1.030) Urine Protein Negative mg/dL (NEG-TRACE) Urine Glucose (UA) Negative mg/dL (NEG) Urine Ketones (Stick) Negative mg/dL (NEG) Urine Blood Negative (NEG) Urine Nitrite Negative (NEG) Urine Bilirubin Negative (NEG) Urine Urobilinogen Dipstick 0.2 mg/dL (0.2 mg/dL) Urine Leukocyte Esterase Negative (NEG) Urine RBC 0 /HPF (0-2) Urine WBC Occ /HPF (0-4) Urine Squamous Epithelial Cells Many /LPF Urine Bacteria Few /HPF (0-FEW) Urine Mucus Marked /LPF Urine Opiates Screen Neg (NEG) Urine Methadone Screen Neg (NEG) Urine Barbiturates Neg (NEG) Urine Phencyclidine Screen Neg (NEG) Urine Amphetamine/Methamphetamine Pos (NEG) Urine Benzodiazepines Screen Neg (NEG) Urine Cocaine Screen Neg (NEG) Urine Cannabinoids Screen Neg (NEG) Urine Ethyl Alcohol Neg (NEG) Sodium Level 139 mmol/L (136-145) Potassium Level 4.0 mmol/L (3.5-5.1) Chloride Level 107 mmol/L (98-107) Carbon Dioxide Level 24 mmol/L (21-32) Anion Gap 8 (6-14) Blood Urea Nitrogen 12 mg/dL (7-20) Creatinine 0.9 mg/dL (0.6-1.0) Estimated GFR (Cockcroft-Gault) 72.1 BUN/Creatinine Ratio 13 (6-20) Glucose Level 99 mg/dL (70-99) Calcium Level 8.0 mg/dL (8.5-10.1) Total Bilirubin 0.1 mg/dL (0.2-1.0) Aspartate Amino Transf (AST/SGOT) 14 U/L (15-37) Alanine Aminotransferase (ALT/SGPT) 16 U/L (14-59) Alkaline Phosphatase 53 U/L (46-116) Total Protein 6.3 g/dL (6.4-8.2) Albumin 3.1 g/dL (3.4-5.0) Albumin/Globulin Ratio 1.0 (1.0-1.7) Lipase 247 U/L (73-393) Ethyl Alcohol Level < 10 mg/dL (0-10) Problem List Problems Medical Problems: (1) Abdominal pain Status: Acute (2) Acute gastroenteritis Status: Acute (3) History of methamphetamine abuse Status: Acute Assessment/Plan HIDA negative for cholecystitis ok to eat and DC per [facility] EVANGELISTA COLORADO MD 11/03/19 1520: SURGICAL PROGRESS NOTE Assessment/Plan Pt seen and examined. Agree with Rakesh Nusrat's note Pt with c/o some abd pressure, but tolerating diet and requests d/c encouraged to f/u if pain persists and may consider cholecystectomy pending resolution of enteritis TOMMIE GUILLORY INFORMATION MANAGEMENT MANAGER Nov 03, 2019 11:36 EVANGELISTA COLORADO MD Nov 03, 2019 15:20
--- NOTE | 2019-11-03 12:22 | PDOC3 ---
Discharge Summary Visit Information Date of Admission: Nov 02, 2019 Date of Discharge: Nov 03, 2019 Admitting Diagnosis Comment: Abdominal pain differential includes acute cholecystitis versus enteritis. coding consultant less concerned about biliary etiology for her symptoms nevertheless HIDA scan has been ordered for the a.m. History of polysubstance abuse with last use of methamphetamine 2 days prior to her admission History of anxiety History of depression Denies suicidal or homicidal ideations at the present time. Final Diagnosis Problems Medical Problems: (1) Abdominal pain Status: Acute (2) Acute gastroenteritis Status: Acute (3) History of methamphetamine abuse Status: Acute Brief Hospital Course Allergies Allergies Coded Allergies Type Severity Reaction Last Updated Verified clonidine Allergy Unknown "HIVES" 07/15/17 Yes Vital Signs Vital Signs Date Time Temp Pulse Resp B/P (MAP) Pulse Ox O2 Delivery O2 Flow Rate FiO2 11/03/19 11:00 98.2 104 18 113/75 (88) 97 Room Air 98.2 Lab Results Laboratory Tests Test 11/02/19 05:40 11/02/19 06:36 White Blood Count 7.8 x10^3/uL (4.0-11.0) Red Blood Count 4.85 x10^6/uL (3.50-5.40) Hemoglobin 15.0 g/dL (12.0-15.5) Hematocrit 44.7 % (36.0-47.0) Mean Corpuscular Volume 92 fL (79-100) Mean Corpuscular Hemoglobin 31 pg (25-35) Mean Corpuscular Hemoglobin Concent 34 g/dL (31-37) Red Cell Distribution Width 13.2 % (11.5-14.5) Platelet Count 263 x10^3/uL (140-400) Neutrophils (%) (Auto) 61 % (31-73) Lymphocytes (%) (Auto) 26 % (24-48) Monocytes (%) (Auto) 9 % (0-9) Eosinophils (%) (Auto) 3 % (0-3) Basophils (%) (Auto) 1 % (0-3) Neutrophils # (Auto) 4.7 x10^3/uL (1.8-7.7) Lymphocytes # (Auto) 2.0 x10^3/uL (1.0-4.8) Monocytes # (Auto) 0.7 x10^3/uL (0.0-1.1) Eosinophils # (Auto) 0.2 x10^3/uL (0.0-0.7) Basophils # (Auto) 0.1 x10^3/uL (0.0-0.2) Urine Collection Type Unknown Urine Color Yellow Urine Clarity Clear Urine pH 5.5 (<5.0-8.0) Urine Specific [place] 1.025 (1.000-1.030) Urine Protein Negative mg/dL (NEG-TRACE) Urine Glucose (UA) Negative mg/dL (NEG) Urine Ketones (Stick) Negative mg/dL (NEG) Urine Blood Negative (NEG) Urine Nitrite Negative (NEG) Urine Bilirubin Negative (NEG) Urine Urobilinogen Dipstick 0.2 mg/dL (0.2 mg/dL) Urine Leukocyte Esterase Negative (NEG) Urine RBC 0 /HPF (0-2) Urine WBC Occ /HPF (0-4) Urine Squamous Epithelial Cells Many /LPF Urine Bacteria Few /HPF (0-FEW) Urine Mucus Marked /LPF Urine Opiates Screen Neg (NEG) Urine Methadone Screen Neg (NEG) Urine Barbiturates Neg (NEG) Urine Phencyclidine Screen Neg (NEG) Urine Amphetamine/Methamphetamine Pos (NEG) Urine Benzodiazepines Screen Neg (NEG) Urine Cocaine Screen Neg (NEG) Urine Cannabinoids Screen Neg (NEG) Urine Ethyl Alcohol Neg (NEG) Sodium Level 139 mmol/L (136-145) Potassium Level 4.0 mmol/L (3.5-5.1) Chloride Level 107 mmol/L (98-107) Carbon Dioxide Level 24 mmol/L (21-32) Anion Gap 8 (6-14) Blood Urea Nitrogen 12 mg/dL (7-20) Creatinine 0.9 mg/dL (0.6-1.0) Estimated GFR (Cockcroft-Gault) 72.1 BUN/Creatinine Ratio 13 (6-20) Glucose Level 99 mg/dL (70-99) Calcium Level 8.0 mg/dL (8.5-10.1) Total Bilirubin 0.1 mg/dL (0.2-1.0) Aspartate Amino Transf (AST/SGOT) 14 U/L (15-37) Alanine Aminotransferase (ALT/SGPT) 16 U/L (14-59) Alkaline Phosphatase 53 U/L (46-116) Total Protein 6.3 g/dL (6.4-8.2) Albumin 3.1 g/dL (3.4-5.0) Albumin/Globulin Ratio 1.0 (1.0-1.7) Lipase 247 U/L (73-393) Ethyl Alcohol Level < 10 mg/dL (0-10) Brief Hospital Course Ms. Hernandez is a 34 old female who presented with abdominal discomfort.at the time of discharge has improved. The patient was quite hungry as opposed to her initial assessment where she did not have good oral intake due to lack of appetite. Patient's HIDA scan was reported as normal according to nursing staff which received a report from our surgical scheduler. No immediate plans for surgical intervention regarding this cholelithiasis found on ultrasound was deemed appropriate. Counseling regarding the noxious effect of methamphetamine use has been given to the patient prior to dismissal and she is in hemodynamically stable condition to be discharged from the institution. Reassurance has been provided all of her concerns were addressed to the best of my abilities she is on no medications at home, signs and symptoms of alarm were discussed prior to dismissal she acknowledged understanding of all the instructions Physical exam Lungs clear to auscultation with good inspiratory effort Cardiovascular S1-S2 regular rhythm no murmurs gallops or rubs Abdominal examination soft nontender no rebound or guarding elicited Discharge Information Condition at Discharge: Improved Follow Up: Weeks Disposition/Orders: D/C to Home No Active Prescriptions or Reported Jorges MARY CARDOZA MD Nov 03, 2019 12:22
[2019-11-03 15:00] VITALS: BP 117/68
== END 2019-11-03 15:30 | disposition home or self-care (01) | DRG 446 ==
LOC: ER 05:07 → 4 NORTH 08:43
PROVIDERS: ADMIT Internal Medicine; ATTEND Internal Medicine
DX: K81.0 Acute cholecystitis (principal); K52.9 Noninfective gastroenteritis and colitis, unspecified; Z87.442 Personal history of urinary calculi; Z90.710 Acquired absence of both cervix and uterus; F41.9 Anxiety disorder, unspecified; F32.9 Major depressive disorder, single episode, unspecified; F17.210 Nicotine dependence, cigarettes, uncomplicated; F15.90 Other stimulant use, unspecified, uncomplicated; F12.90 Cannabis use, unspecified, uncomplicated
CPT/HCPCS: 36415; 74177; 76705; 78226; 80053; 80307; 81001; 83690; 85025; 96361; 96374; 96375; 99285; 99406; A9537; G0480; J1885; J2270; J2405; J7030; Q9967; G0378

== ENCOUNTER → 2020-09-18 | Outpatient (CLI) | payer BC ==
[~2020-09-18] MED LIST changes: +CLON0.1T PO; +OXYC1TAB15 PO; +TOPI100T8 PO
== END ==
LOC: LAB 12:00
PROVIDERS: ATTEND Surgery
DX: Z01.812 Encounter for preprocedural laboratory examination (principal); Z20.822 Contact with and (suspected) exposure to COVID-19; K80.20 Calculus of gallbladder without cholecystitis without obstruction
CPT/HCPCS: U0003

== ENCOUNTER 2020-09-22 06:09 | Day surgery (SDC) | payer BC ==
[~2020-09-22] VITALS: Ht 157.5 cm; Wt 46.7 kg
[~2020-09-22 06:09] MED LIST changes: +HYDROmorphone 2 MG/ML VIAL IVP PRN; +IV RINGERS,LACTATED 1000ML 1,000 ML IV SCH; +MORPHINE SULFATE 2 MG/ML VIAL. IVP PRN; -OXYC1TAB15 PO; +PROCHLORPERAZINE 10 MG/2 ML VIAL. IVP PRN; +ceFAZolin SODIUM IV Push 1 GM VIAL. IVP PRN; +fentaNYL PF VIAL 100 MCG/2 ML VIAL IVP PRN
[2020-09-22 07:01] LABS: BARBITURATES NEG (NEG); BENZODIAZEPINES NEG (NEG); CANNABINOIDS NEG (NEG); COCAINE NEG (NEG); METHADONE NEG (NEG); OPIATES NEG (NEG); PHENCYCLIDINE NEG (NEG)
[2020-09-22 07:04] LABS: AMPHETAMINE/METHAMPHETAMINE POS (NEG)
[2020-09-22] MEDS ORDERED: NEOSTIGMINE METHYLSULFATE 5 MG/5 ML SYRINGE. ONE (07:08)
[2020-09-22] MEDS ORDERED: GLYCOPYRROLATE 1 MG/5 ML VIAL. ONE (07:08)
[2020-09-22] MEDS ORDERED: MIDAZOLAM HCL/PF 2 MG/2 ML VIAL. ONE ×2 (07:08→09:06)
[2020-09-22] MEDS ORDERED: ROCURONIUM 50 MG/5 ML VIAL. ONE (07:08)
[2020-09-22] MEDS ORDERED: fentaNYL PF VIAL 100 MCG/2 ML VIAL ONE ×2 (07:08→08:56)
[2020-09-22] MEDS ORDERED: ONDANSETRON PF 4 MG/2 ML VIAL. ONE (07:10)
[2020-09-22] MEDS ORDERED: DEXAMETHASONE SOD PHOS 4 MG/ML VIAL ONE (07:10)
[2020-09-22] MEDS ORDERED: PROPOFOL 10 MG/ML (20ML) VIAL. IV ONE (07:10)
[2020-09-22] MEDS ORDERED: LIDOCAINE 2% PF 5 ML VIAL. ONE (07:10)
[2020-09-22] MEDS ORDERED: SURGICEL HEMOSTAT 4X8 EACH. ONE (07:19)
[2020-09-22] MEDS ORDERED: BUPIVACAINE MPF 0.5% 30 ML VIAL. ONE (07:19)
[2020-09-22] MEDS ORDERED: IOHEXOL 300 MG/ML 50 ML VIAL. ONE (07:19)
[2020-09-22] MEDS ORDERED: KETOROLAC 30 MG/ML VIAL. ONE (08:21)
--- NOTE | 2020-09-22 08:46 | PDOC4 ---
Operative Note Operative Note Operative Note: Preoperative Diagnosis: Symptomatic cholelithiasis Postoperative Diagnosis: Same Procedure: Laparoscopic cholecystectomy with intraoperative cholangiogram Surgeons: David Department Assistant: Katt Burgess Anesthesia: Gen. Estimated Blood Loss: 10 mL Specimen: Gallbladder to pathology Drains: None Complications: None Indications: The patient is a 34 year old female who was referred with suspected symptomatic cholelithiasis. Surgical treatment was offered by means of a laparoscopic cholecystectomy. The risks of surgery were discussed which include bleeding, infection, bile duct injury, bile leak, pain, the potential for additional surgeries or procedures. The patient understands and would like to proceed. Description: The patient was taken to the operating room and laid supine on the operating table. General anesthesia was performed. The abdomen was prepped with ChloraPrep and draped in a standard surgical fashion. A small infraumbilical incision was made with a scalpel. The Veress needle was then inserted and a pneumoperitoneum was then created. A 5 mm trocar was then inserted and the laparoscope was introduced. In the upper midabdomen a 5 mm trocar was inserted and in the right upper quadrant two 2.3 mm mini lap graspers were inserted. The gallbladder was retracted cephalad. The cystic duct was dissected free from surrounding tissues. One clip was placed on the duct near the gallbladder junction. An opening was made in the duct and a cholangiocatheter placed within and secured with a clip. Using contrast dye and fluoroscopy an intraoperative cholangiogram was performed that appeared unremarkable. The clip and catheter were then withdrawn. Three clips were placed on the cystic duct and it was divided. The cystic artery was then identified, dissected free, doubly clipped and divided as well. The gallbladder was then mobilized away from the liver with cautery. The umbilical 5 millimeter trocar was exchanged for an 11 millimeter trocar. The gallbladder was then placed in an endoscopic bag and extracted at the umbilical trocar site. The fascia there was closed with an 0 Vicryl suture and infiltrated with half percent Marcaine with epinephrine. All blood and irrigation fluid was suctioned and hemostasis was good. The remaining ports were removed and the pneumoperitoneum was relieved. The skin incisions were closed using 4-0 Monocryl suture. Steri-Strips and dressings were then applied. The patient elpidio erated the procedure well and was sent to the recovery room in stable condition. At the end of the case all counts were correct. LAUREL DAWKINS MD Sep 22, 2020 08:46
--- NOTE | 2020-09-22 08:49 | DISCH ---
DISCHARGE INSTRUCTIONS Condition on Discharge Condition on Discharge: Unstable Activity After Discharge Activity Instructions for Disc: Other, see below (no lifting over 20 lbs, no driving while taking pain meds) Diet after Discharge Diet after Discharge: Regular Wound Incision Care Wound/Incision Care: Other, see below (may remove bandaids tomorrow and shower, steristrips fall of on their own) Follow-Up Follow up with: Dr Dawkins in 2 weeks in office, call for appointment [phone] LAUREL DAWKINS MD Sep 22, 2020 08:49
[2020-09-22] MEDS ORDERED: OXYC1TAB15 PO (08:54)
[2020-09-22] MEDS: fentaNYL PF VIAL 100 MCG/2 ML VIAL IVP PRN ×2 (09:00→09:05)
[2020-09-22] MEDS ORDERED: PROCHLORPERAZINE 10 MG/2 ML VIAL. ONE (09:06)
[2020-09-22] MEDS ORDERED: oxyCODONE/APAP 5/325 1 TAB TABLET PO ONE (09:30)
[2020-09-22] MEDS ORDERED: MIDAZOLAM HCL/PF 2 MG/2 ML VIAL. IV ONE (09:30)
--- NOTE | 2020-09-22 09:37 | RAD ---
EXAMINATION: DG INTRAOPERATIVE CHOLANGIOGRAM 09/22/2020 7:52 AM HISTORY: Cholecystectomy COMPARISON: CT abdomen pelvis 11/02/2019 FINDINGS: 5 fluoroscopic images were obtained for intraoperative cholangiogram. These demonstrate maria guadalupe gical changes of cholecystectomy. Contrast opacifies the central intrahepatic and common bile ducts. There is no filling defect. Contrast is also seen in the duodenum. Total fluoroscopic time:0.5 minutes. 5 images. IMPRESSION: Intraoperative cholangiogram during cholecystectomy. Electronically signed by: Nikia Coombs MD (09/22/2020 9:35 AM) [id number]
[2020-09-22 09:45] VITALS: BP 106/78
== END 2020-09-22 10:38 | disposition home or self-care (01) ==
LOC: SURG 06:09
PROVIDERS: ATTEND Surgery
DX: K80.80 Other cholelithiasis without obstruction (principal); E78.00 Pure hypercholesterolemia, unspecified; F41.9 Anxiety disorder, unspecified; F32.9 Major depressive disorder, single episode, unspecified; F17.210 Nicotine dependence, cigarettes, uncomplicated; Z90.710 Acquired absence of both cervix and uterus; Z98.890 Other specified postprocedural states; Z79.899 Other long term (current) drug therapy; Z72.89 Other problems related to lifestyle; Z88.8 Allergy status to other drugs, medicaments and biological substances
CPT/HCPCS: 47563; 74300; 80307; J0690; J0780; J1100; J1885; J2250; J2405; J2704; J2710; J3010; J3490; J7120; Q9967